=== PATIENT | female | born 1970 | race Caucasian/White ===

== ENCOUNTER 2017-01-19 15:19 | Inpatient (IN) | payer BC, OTHER ==
[~2017-01-19] VITALS: Ht 154.9 cm; Wt 52.6 kg
--- NOTE | ~2017-01-19 | H ---
[facility] [place] [address] HISTORY AND PHYSICAL Name: VERONIQUE ONEAL Room #: 442-P ADM IN M.R.#: [id number] Admission: 01/19/17 Attend Phys: Yoseph Elmore Discharge: Date of : 66 Report #: [id number] THIS REPORT FOR: //name// CC: Lars Fragoso DATE OF SERVICE: 01/19/2017 CHIEF COMPLAINT: Back pain. HISTORY OF PRESENT ILLNESS: The patient is a 46-year-old female who was admitted by Dr. Fragoso from the office for evaluation of back pain. She has had pain that has been excruciating in the last few days and she has been unable to eat or drink. She denies any injury or fall. She gives report of chronic back pain problems and a history of fibromyalgia. Most recently gabapentin has been added to her regimen without any improvement in her symptoms. She has been taking this for about 5 weeks. She also has hydrocodone as well as an anti-inflammatory at home. PAST MEDICAL HISTORY: Psoriasis, fibromyalgia. From the office notes, it appears she has had 2 hospitalizations in the past for DTOX, it is unclear whether this is substance or alcohol. PAST SURGICAL HISTORY: None. FAMILY HISTORY: Noncontributory. SOCIAL HISTORY: No chronic alcohol or tobacco use. ALLERGIES: None. REVIEW OF SYSTEMS: She complains of loss of appetite, back pain. No fever, chills, headache, chest pain, shortness of breath, diarrhea, constipation, dysuria, syncope, falls. OBJECTIVE: VITAL SIGNS: Temperature 36.4, pulse 71, respirations 18, blood pressure 116/80. GENERAL: Awake and alert, in no distress. HEAD AND NECK: Unremarkable. LUNGS: Clear. HEART: Regular. ABDOMEN: Soft, normoactive bowel sounds. EXTREMITIES: No edema. NEUROLOGIC: Motor strength 5/5 throughout. She was able to get out of bed unassisted and walk the halls unassisted. [facility] [address] [place] [address] HISTORY AND PHYSICAL Name: VERONIQUE ONEAL Room #: 44-[facility] IN M.R.#: [id number] Admission: 01/19/17 Attend Phys: Yoseph Elmore Discharge: Date of : 66 Report #: [id number] X-rays of the lumbosacral spine are unremarkable. ASSESSMENT: 1. Back pain. 2. Fibromyalgia. 3. Depression. PLAN: I will ask for an MRI as she was also complaining of pain in the upper back from the thoracic to lumbar to rule out structural lesion, then consider epidural steroid injections if indicated or trigger point injections if the pain service feels this may help. I believe there is a degree of depression based on her flat affect and mood symptoms, but this can also be exacerbating and contributing to diffuse pain. I last will ask psychiatry service to assess her as well. I will switch her to Cymbalta as a trial along with an anti-inflammatory. If no major structural issues, then anticipate early discharge home. <ELECTRONICALLY SIGNED> By: Chito Abreu MD 01/20/17 1427 [id number] Chito Abreu MD /nt
[2017-01-19 17:05] VITALS: BP 122/92
[2017-01-19] MEDS ORDERED: TRAZODONE HCL50 MG PO (19:25)
[2017-01-19 19:39] LABS: HEMATOCRIT 43.4 % (37.0-47.0); HEMOGLOBIN 14.6 gm/dL (12.0-15.0); MCH 32.4 pg (26.0-34.0); MCHC 33.5 g/dL (28.0-37.0); MCV 96.6 fL (80.0-100.0); RBC 4.49 mil/uL (4.20-5.00); RDW 12.8 % (10.5-14.5); WBC 4.7 thou/uL (4.0-11.0)
[2017-01-19 19:45] VITALS: BP 118/82
[2017-01-19 20:33] LABS: ALBUMIN 4.3 g/dL (3.4-5.0); CALCIUM 9.4 mg/dL (8.5-10.1); CREATININE 0.9 mg/dL (0.6-1.0); POTASSIUM 3.8 mmol/L (3.5-5.1); TOTAL BILIRUBIN 0.3 mg/dL (<0.1-1.0); TOTAL PROTEIN 6.8 g/dL (6.4-8.2)
[2017-01-20 04:45] VITALS: BP 116/80
[2017-01-20] MEDS ORDERED: TRAZODONE HCL50 MG PO (05:38)
[2017-01-20] MEDS ORDERED: CLONAZEPAM2 MG PO (05:39)
[2017-01-20] MEDS ORDERED: HORIZANT300 MG PO (05:40)
[2017-01-20] MEDS ORDERED: HYDROCODONE-AP1 EAC6 PO (07:32)
[2017-01-20 08:25] VITALS: BP 114/82
[2017-01-20 16:00] VITALS: BP 116/85
[2017-01-20 19:44] VITALS: BP 114/81
[2017-01-21 03:59] VITALS: BP 116/80
[2017-01-21 07:50] VITALS: BP 116/87
[2017-01-21 16:00] VITALS: BP 127/96
[2017-01-21 19:57] VITALS: BP 114/80
[2017-01-22 03:16] VITALS: BP 121/86
[2017-01-22 08:00] VITALS: BP 120/81
[2017-01-22] MEDS ORDERED: CYCLOBENZAPRINE5 MG PO (08:27)
[2017-01-22] MEDS ORDERED: MOBIC15 MG PO (08:28)
[2017-01-22] MEDS ORDERED: NORCO 7.5-3251 EACH PO (08:29)
[2017-01-22] MEDS ORDERED: CLONAZEPAM 0.50.5 M1 PO (08:30)
[2017-01-22] MEDS ORDERED: NEURONTIN 300300 M1 PO (08:30)
[2017-01-22] MEDS ORDERED: CYMBALTA30 MG PO (08:31)
[2017-01-22] MEDS ORDERED: TRAZODONE HCL100 MG PO (08:31)
[2017-01-22 10:40] VITALS: BP 120/81
== END 2017-01-22 11:07 | disposition home or self-care (01) | DRG 551 ==
LOC: 4S 15:19
PROVIDERS: Internal Medicine
DX: M54.9 Dorsalgia, unspecified (principal); E43 Unspecified severe protein-calorie malnutrition; M79.7 Fibromyalgia; G89.29 Other chronic pain; F32.9 Major depressive disorder, single episode, unspecified; Z68.21 Body mass index [BMI] 21.0-21.9, adult; Z79.899 Other long term (current) drug therapy
CPT/HCPCS: 10102

== ENCOUNTER → 2017-03-30 | Outpatient (CLI) | payer BC, OTHER ==
[~2017-03-30] VITALS: Ht 154.9 cm; Wt 59.0 kg
[~2017-03-30] MED LIST: CLONAZEPAM 0.50.5 M1 PO; CLONAZEPAM 1 MG1 M1 PO; CLONAZEPAM2 MG PO; CYCLOBENZAPRINE5 MG PO; CYMBALTA30 MG PO; HORIZANT300 MG PO; HYDROCODON-ACE1 EAC8 PO; HYDROCODONE-AP1 EAC6 PO; MOBIC15 MG PO; NEURONTIN 300300 M1 PO; NORCO 7.5-3251 EACH PO; TRAZODONE HCL100 MG PO; TRAZODONE HCL50 MG PO; VENLAFAXINE HC150 M1 PO
--- NOTE | ~2017-03-30 | HPC ---
[facility] [address] [place] [address] PAIN MANAGEMENT CONSULTATION Name: VERONIQUE ONEAL Room #: REG ANIL Kristian.#: [id number] Admission: 03/30/17 Attend Phys: Elio Boyle DO Discharge: Date of : 66 Report #: [id number] THIS REPORT FOR: //name// CC: Lisandro Boyle The patient is an extremely unfortunate 46-year-old female seen in consultation at the request of Dr. Fragoso for assistance with management of chronic widespread "all over" pain. The patient notes pain is across her back. She has a "tightening and ruchi in her muscles." She states pain is in her neck down to her waistline. Pain is exacerbated with cold temperatures, ice on her skin, standing and walking. She states in response to the question what makes it better "luck and good fortune, prayer." She currently takes gabapentin 300 mg b.i.d., meloxicam 15 mg that she self-discontinued, was prescribed Cymbalta, but this was discontinued in place of Effexor 75 mg b.i.d. She has been referred to a doll eye setter though she has not yet made that appointment. States her pain is continuous, steady, constant, burning, aching, throbbing and pounding. Rates it a "10" on a VAS. An important note is that the patient attempted suicide on 11/22 due to specifically to ongoing back pain. Apparently, she took an overdose of muscle relaxants and another medication (benzodiazepine?). Currently, the patient takes hydrocodone 7.5/325 four a day with "nominal efficacy." She still has a 10/10 pain. REVIEW OF SYSTEMS: Complete review of systems attached to the chart and gone over with the patient. She is , seen in the company of her who is supportive. She has a 01-[id number]-[id number] smoking history, currently smokes about three packs of cigarettes a week. She has a history of hypertension, chronic anxiety and depression and history of psoriatic arthritis. She lists her occupation as unemployed. 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 PHYSICAL EXAMINATION: GENERAL: Reveals a 5 feet, 1 inch, 130 pounds female, when I came into the room, she was lying on the exam bed with a quilt from her home over her. Her was sitting quietly in a chair. She stated her pain was a "10" on a VAS. She described pain from her neck down to her low back and into her bilateral feet. She states she had tight contractions in the back and pain dramatically interfered with function. BMI is 24.6 [place] [address] PAIN MANAGEMENT CONSULTATION Name: VERONIQUE ONEAL Room #: REG ANIL Bates#: [id number] Admission: 03/30/17 Attend Phys: Elio Boyle DO Discharge: Date of : 66 Report #: [id number] VITAL SIGNS: Blood pressure 94/64, pulse 80, respirations are 14. NEUROLOGIC: Cranial nerves 2-12 are grossly intact. Pupils are pinpoint and reactive. Extraocular muscles are intact. She has marked nystagmus with lateral gaze deviation. She appears sedate. She appears somewhat "intoxicated." She does arise and sit on the side of the bed at my request. NECK: Thyroid is unremarkable. Cervical range of motion is adequate. EXTREMITIES: Upper extremity strength is diminished, but symmetric. She does have psoriatic plaquing in both elbows. LUNGS: Show coarse rhonchi bilaterally. HEART: Regular rhythmical without murmur. ABDOMEN: Benign. MUSCULOSKELETAL: Lower extremity strength is symmetric about 4/5. She walks with a wide-based, ataxic gait. Lumbar flexion is good about 90 degrees, but she nearly loses her balance when righting herself. She has significant tenderness in the splenius capitis, trapezius and thoracic and paravertebral muscles bilaterally. Patellar and Achilles reflexes are symmetric. Straight leg raising is negative. DIAGNOSTIC STUDIES: Include ESR of 5 (01/20/2017). CRP of 2.18, same date. Renal function is low, BUN and creatinine are 16 and 0.9 respectively yielding a small EGFR of 69. DIAGNOSTIC STUDIES: Include cervical and thoracic MRIs accomplished when the patient was hospitalized on 01/20/2017 for "back pain." Poor quality due to movement. There appears to be some facet arthropathy at L4-L5, some central narrowing, nothing appearing terribly dramatic. Thoracic spine was read as essentially unremarkable. ASSESSMENT: Myofascial pain in a patient with chronic pain syndrome significant psychiatric overlay requiring high risk complex medication management. RECOMMENDATION: 1. Strongly recommend smoking cessation, there is a high correlation of nicotine use and axial back pain. 2. Recommend the patient resume meloxicam 15 mg 1 a day. She has a prescription for same. 3. I would strongly recommend resuming Cymbalta. It is indicated for myofascial pain. She is taking Effexor at a moderate dose (75 mg b.i.d.). It is listed as a SSRI and norepinephrine reuptake inhibitor as well as a dopamine reuptake inhibitor; however, at moderate doses has much less norepinephrine reuptake inhibition than Cymbalta does at therapeutic doses. I will defer to her treating psychiatrist. Strongly recommend range of motion and stretching, the patient claims that she does yoga and goes swimming at the [facility] though she is significantly deconditioned and her notes that she may have been one time in the past 2 weeks. Prior to that, it had been some time before she had been swimming, but she does try and do some yoga. [facility] [address] [place] [address] PAIN MANAGEMENT CONSULTATION Name: VERONIQUE ONEAL Room #: REG [facility].#: [id number] Admission: 03/30/17 Attend Phys: Elio Boyle DO Discharge: Date of : 66 Report #: [id number] 4. Trigger point injections today, major muscle groups involved include the bilateral thoracic and lumbar paravertebral muscles. 5. Follow up in 4 weeks for reevaluation. May consider trigger point injections repeated and referral to physical therapy for range of motion, stretching and modalities as indicated. It is noteworthy that the Center for Disease Control has a publicized therapeutic recommendations for fibromyalgia type pain, they specifically eschew opiate use as it has not been shown to improve functional status. PROCEDURE NOTE: Trigger point injections x 4. DESCRIPTION OF PROCEDURE: After written informed consent was obtained, the patient was placed in the prone position. Skin overlying the thoracic and lumbar bilateral paravertebral muscles was widely cleansed with alcohol. Using a 25-gauge needle, 40 mg triamcinolone plus 10 mL of 0.5% preservative free bupivacaine was injected into and around the discrete trigger points. The patient was monitored for an appropriate period of time and discharged in good stable condition. She noted significant improvement of baseline pain, claiming her pain was on a 10 on a VAS on admission, but down to a 4 on discharge. Thank you for allowing me to participate in the patient's care. I will follow up in 4 weeks for reevaluation. <ELECTRONICALLY SIGNED> By: Elio Boyle DO 03/31/17 0650 [id number] [id number] Elio Boyle DO /nt
[2017-03-30 11:06] VITALS: BP 94/64
== END | disposition home or self-care (01) ==
LOC: PAIN 07:07
DX: M79.1 Myalgia (principal); G89.4 Chronic pain syndrome; I10 Essential (primary) hypertension; F32.89 Other specified depressive episodes; F41.8 Other specified anxiety disorders; F17.210 Nicotine dependence, cigarettes, uncomplicated; Z79.891 Long term (current) use of opiate analgesic

== ENCOUNTER 2017-04-26 16:31 | Inpatient (IN) | payer BC, OTHER ==
[~2017-04-26] VITALS: Ht 154.9 cm; Wt 58.2 kg
--- NOTE | ~2017-04-26 | H ---
[facility] [place] [address] HISTORY AND PHYSICAL Name: VERONIQUE ONEAL Room #: 430-P ADM IN M.R.#: [id number] Admission: 04/26/17 Attend Phys: Yoseph Elmore Discharge: Date of : 66 Report #: [id number] THIS REPORT FOR: //name// CC: Lars Fragoso CHIEF COMPLAINT: Back pain. HISTORY OF PRESENT ILLNESS: The patient is a 46-year-old female who is admitted from the office with back pain and concerns of alcohol abuse. She has been suffering from low back pain for a number of months. She was admitted to the hospital in January of this year and underwent an MRI of the thoracic and lumbar spine, which really revealed only minor degenerative issues in the lumbar area. She was medically stabilized at that point and discharged home. She then had a visit with the pain clinic in March and was diagnosed with fibromyalgia and recommended for Cymbalta and Mobic. There has been some concern and discussion through the office of psoriatic arthritis, but it is unclear if any rheumatologic workup or evaluation has been undertaken. Unfortunately, it appears she presented to the office yesterday intoxicated and was admitted to the hospital last night with a serum alcohol level of 242. There is concern that she may be masking her pain with alcohol use. PAST MEDICAL HISTORY: Psoriasis, fibromyalgia, prior hospitalizations for alcohol detoxification and unclear if she has had withdrawal issues. PAST SURGICAL HISTORY: Unknown. FAMILY HISTORY: Unknown. SOCIAL HISTORY: There is regular alcohol use. ALLERGIES: None. MEDICATIONS: She was supposed to be on Cymbalta and meloxicam, but it is unclear if she was taking any medication. REVIEW OF SYSTEMS: She recently suffered a fall, she said, in her bathtub and has bruising around the right eye. She complains of dizziness and nausea. Otherwise, no headache, chest pain, shortness of breath, abdominal pain, diarrhea, constipation, dysuria, syncope. OBJECTIVE: VITAL SIGNS: Temperature 98, pulse 83, respirations 18, blood pressure 103/86, O2 sat 100% on room air. GENERAL: She is awake and alert, recognized that she is in the hospital. HEAD AND NECK: There is ecchymoses around the right orbit. LUNGS: Clear. HEART: Regular. [facility] [address] [place] [address] HISTORY AND PHYSICAL Name: VERONIQUE ONEAL Room #: 430- ADM IN M.R.#: [id number] Admission: 04/26/17 Attend Phys: Yoseph Elmore Discharge: Date of : 66 Report #: [id number] ABDOMEN: Soft, normoactive bowel sounds. EXTREMITIES: No edema. I do not see any joint deformities in the hands. SKIN: No open rash or lesions noted. She has some bruising on the right lower leg and knee. NEUROLOGIC: She is not oriented to date or time. Does follow simple commands, moves all extremities equally with motor strength intact. LABORATORY DATA: Included the serum alcohol of 242. Transaminase level slightly elevated. CT head was unremarkable for intracranial injury and chest x-ray was negative. ASSESSMENT: 1. Alcohol intoxication. 2. Alcohol withdrawal. 3. Chronic low back pain. 4. Fibromyalgia. 5. History of psoriasis. PLAN: Alcohol withdrawal protocol will be initiated and the Psychiatry Service consulted. They saw her last January. I have ordered additional labs and x-rays of her hands and low back, and I will ask Dr. Dean to see her regarding the question of psoriatic arthritis. <ELECTRONICALLY SIGNED> By: Chito Abreu MD 04/27/17 1258 [id number] 1035 Chito Abreu MD /nt
--- NOTE | ~2017-04-26 | EKG ---
[place] [address] [facility] [place] [address] ELECTROCARDIOGRAM REPORT Name: VERONIQUE ONEAL Room #: 430-P ADM IN M.R.#: [id number] Admission: 04/26/17 Attend Phys: Yoseph Elmore Discharge: Date of : 66 Report #: [id number] THIS REPORT FOR: //name// [facility] Test Date: 2017-04-26 Test Time: 19:03:43 Pat Name: VERONIQUE ONEAL Department: Room: 430 P Gender: F Silo Erector: Yoseph GODWIN : 1970 Requested By: Lars Fragoso Order Number: [id number] MD: Candido Zurita Measurements Intervals [place] Rate: 89 P: 81 [place]: 152 QRS: -30 QRSD: 85 T: 23 QT: 383 QTc: 467 Interpretive Statements Sinus rhythm Left anterior hemiblock Baseline wander in lead(s) V2 No previous ECG available for comparison Electronically Signed On 04-27-2017 7:53:20 MAINTENANCE TECH by Candido Zurita [email or web address] <ELECTRONICALLY SIGNED> By: Candido Zurita MD, [facility] 04/27/17 0753 02 02 Candido Zurita MD, FAC /EPI
[2017-04-26 17:10] VITALS: BP 128/85
[2017-04-26 19:33] LABS: HEMATOCRIT 39.5 % (37.0-47.0); HEMOGLOBIN 13.5 gm/dL (12.0-15.0); MCH 35.2 pg (26.0-34.0); MCV 103.3 fL (80.0-100.0); PLATELET COUNT 285 thou/uL (150-400); RBC 3.83 mil/uL (4.20-5.00); RDW 17.7 % (10.5-14.5); WBC 4.2 thou/uL (4.0-11.0)
[2017-04-26 19:50] LABS: ALBUMIN 3.7 g/dL (3.4-5.0); CALCIUM 8.9 mg/dL (8.5-10.1); CREATININE 0.6 mg/dL (0.6-1.0); POTASSIUM 3.6 mmol/L (3.5-5.1); TOTAL BILIRUBIN 0.5 mg/dL (<0.1-1.0); TOTAL PROTEIN 6.8 g/dL (6.4-8.2)
[2017-04-26 20:00] VITALS: BP 129/80
[2017-04-26 20:04] LABS: ABSOLUTE NEUTROPHILS 3.1 thou/uL (1.4-8.2); ANISOCYTOSIS 1+; MACROCYTES 1+
[2017-04-26 20:05] LABS: POLYCHROMASIA OCCASIONAL
[2017-04-27 00:15] VITALS: BP 134/78
[2017-04-27 04:20] VITALS: BP 150/81
[2017-04-27 08:57] VITALS: BP 143/86
[2017-04-27 10:43] LABS: MCHC 34.3 g/dL (28.0-37.0)
[2017-04-27 10:45] LABS: HEMATOCRIT 37.7 % (37.0-47.0); HEMOGLOBIN 12.9 gm/dL (12.0-15.0); MCH 35.1 pg (26.0-34.0); MCV 102.4 fL (80.0-100.0); PLATELET COUNT 261 thou/uL (150-400); RBC 3.68 mil/uL (4.20-5.00); RDW 17.3 % (10.5-14.5); WBC 7.9 thou/uL (4.0-11.0)
[2017-04-27 10:47] LABS: CALCIUM 8.9 mg/dL (8.5-10.1); CREATININE 0.6 mg/dL (0.6-1.0); POTASSIUM 3.2 mmol/L (3.5-5.1)
[2017-04-27 10:52] LABS: ALBUMIN 3.4 g/dL (3.4-5.0); MAGNESIUM 1.6 mg/dL (1.8-2.4); PHOSPHORUS 1.2 mg/dL (2.5-4.9); TOTAL BILIRUBIN 1.2 mg/dL (<0.1-1.0); TOTAL PROTEIN 6.3 g/dL (6.4-8.2)
[2017-04-27 11:08] LABS: ABSOLUTE NEUTROPHILS 6.7 thou/uL (1.4-8.2)
[2017-04-27 11:17] LABS: FOLIC ACID 9.7 ng/mL (8.6-58.9)
[2017-04-27 16:00] VITALS: BP 133/82
[2017-04-27 20:00] VITALS: BP 138/90
[2017-04-27 23:33] LABS: URINE BILIRUBIN NEGATIVE (Negative); URINE BLOOD NEGATIVE (Negative); URINE CLARITY CLEAR; URINE COLOR YELLOW; URINE GLUCOSE-RANDOM* NEGATIVE (Negative); URINE KETONES NEGATIVE (Negative); URINE LEUKOCYTES NEGATIVE (Negative); URINE NITRITE NEGATIVE (Negative); URINE PROTEIN (DIPSTICK) NEGATIVE (Negative); URINE SPECIFIC GRAVITY <= 1.005 (1.005-1.035); URINE UROBILINOGEN 0.2 E.U./dl (0.2-1.0)
[2017-04-27 23:41] LABS: AMP/METHAMP Negative (Negative); BARBITURATES Negative (Negative); BENZODIAZEPINES Negative (Negative); COCAINE Negative (Negative); METHADONE Negative (Negative); OPIATES Negative (Negative); PCP Negative (Negative)
[2017-04-28 04:36] VITALS: BP 135/87
[2017-04-28 07:50] VITALS: BP 142/96
[2017-04-28 12:20] LABS: ALBUMIN 3.7 g/dL (3.4-5.0); CALCIUM 9.1 mg/dL (8.5-10.1); CREATININE 0.6 mg/dL (0.6-1.0); TOTAL BILIRUBIN 0.8 mg/dL (<0.1-1.0); TOTAL PROTEIN 6.9 g/dL (6.4-8.2)
[2017-04-28 12:22] LABS: POTASSIUM 2.8 mmol/L (3.5-5.1)
[2017-04-28 15:35] VITALS: BP 142/93
[2017-04-28 19:34] VITALS: BP 144/94
[2017-04-29 03:44] VITALS: BP 140/90
[2017-04-29 05:36] LABS: CALCIUM 8.9 mg/dL (8.5-10.1); CREATININE 0.7 mg/dL (0.6-1.0); MAGNESIUM 1.8 mg/dL (1.8-2.4); PHOSPHORUS 1.9 mg/dL (2.5-4.9)
[2017-04-29 07:20] VITALS: BP 145/100
[2017-04-29] MEDS ORDERED: NEURONTIN 300300 M1 PO (12:10)
[2017-04-29] MEDS ORDERED: MOBIC15 MG PO (12:10)
[2017-04-29] MEDS ORDERED: HYDROCODON-ACE1 EAC7 PO (12:10)
[2017-04-29 12:21] VITALS: BP 145/100
== END 2017-04-29 13:33 | disposition home or self-care (01) | DRG 897 ==
LOC: 4E 16:31
PROVIDERS: Internal Medicine; Internal Medicine Geriatric Medicine
DX: F10.239 Alcohol dependence with withdrawal, unspecified (principal); F10.229 Alcohol dependence with intoxication, unspecified; G89.29 Other chronic pain; M54.5 Low back pain; F32.9 Major depressive disorder, single episode, unspecified; L40.9 Psoriasis, unspecified; Z79.899 Other long term (current) drug therapy
CPT/HCPCS: 10783